=== PATIENT | male | born 1955 | race Caucasian/White ===

== ENCOUNTER 2022-06-19 15:10 | Outpatient (CLI) | payer MEDICARE | END 2022-06-19 15:11 | disposition home or self-care (01) | LOC: BURRAD 15:10 | PROVIDERS: ATTEND Nurse Practitioner Family | DX: M25.561 Pain in right knee (principal); M17.11 Unilateral primary osteoarthritis, right knee; M89.9 Disorder of bone, unspecified ==

== ENCOUNTER 2023-05-29 16:40 | Outpatient (CLI) | payer MEDICARE | END 2023-05-29 16:41 | disposition home or self-care (01) | LOC: BURRAD 16:40 | PROVIDERS: ATTEND Nurse Practitioner Family | DX: M25.511 Pain in right shoulder (principal); G89.29 Other chronic pain; M19.011 Primary osteoarthritis, right shoulder ==